=== PATIENT | female | born 1955 | race Caucasian/White ===

== ENCOUNTER 2024-11-04 11:32 | Emergency (ER) | payer MEDICARE, OTHER, SELFPAY ==
[2024-11-04 11:32] VITALS: BMI 23.5
[2024-11-04 11:33] VITALS: BP 144/109
[2024-11-04] MEDS: ZOFRAN 4 MG IV (12:58)
[2024-11-04 13:00] VITALS: BP 137/77
[2024-11-04 13:12] LABS: % Basophils 0.7 % (0-2); % Eosinophils 1.3 % (0-6); % Immature Granulocytes 0.2 % (0-0.5); % Lymphocytes 26.6 % (20.5-51.1); % Monocytes 8.3 % (1.7-9.3); % Neutrophils 62.9 % (42.2-75.2); Absolute Eosinophils 0.1 10^3/uL (0-0.7); Absolute Lymphocytes 1.2 10^3/uL (1.2-3.4); Absolute Monocytes 0.4 10^3/uL (0.1-0.6); Absolute Neutrophils 2.9 10^3/uL (1.4-6.5); Hematocrit 35.2 % (37.0-47.0); Mean Corp Hgb Conc. 34.1 g/dL (33.0-37.0); Mean Corpuscular Hgb 31.5 pg (27.0-31.0); Mean Corpuscular Volume 92.4 fL (81.0-99.0); Mean Platelet Volume 10.6 fL (7.4-10.4); Nucleated Red Blood Cells % 0 %; Platelet Count 215 10^3/uL (130-400); Red Blood Cell Count 3.81 10^6/uL (4.20-5.40); White Blood Cell Count 4.6 10^3/uL (4.8-10.8)
[2024-11-04 13:23] LABS: Urine Albumin Negative (Neg - Trace); Urine Bilirubin Negative (Negative); Urine Character Clear (Clear); Urine Color Yellow; Urine Glucose Negative (Negative); Urine Ketone Negative (Negative); Urine Leukocyte Negative (Negative); Urine Nitrite Negative (Negative); Urine Occult Blood Negative (Negative); Urine Specific Gravity 1.005 (<1.030); Urine Urobilinogen Negative (Neg - 1+)
[2024-11-04 13:25] LABS: ALT (SGPT) 18 U/L (0-35); AST (SGOT) 23 U/L (14-36); Alkaline Phosphatase 35 U/L (38-126); Blood Urea Nitrogen 15 mg/dl (7-17); Calcium 9.7 mg/dl (8.4-10.2); Carbon Dioxide 28 mmol/L (22-30); Chloride 108 mmol/L (98-107); Estimated Creatinine Clearance 65 ml/min; Glucose 91 mg/dl (70-99); Lipase 68 U/L (23-300); Potassium 4.5 mmol/L (3.5-5.1); Sodium 139 mmol/L (135-145); Total Bilirubin 0.5 mg/dl (0.2-1.3); Total Protein 6.6 g/dl (6.3-8.2); eGFR > 60.00
--- NOTE | 2024-11-04 14:01 | ED.GENMED ---
History of Present Illness
General
Chief Complaint: Abdominal Pain
Time Seen by Provider: 11/04/24 12:09
History of Present Illness
History of Present Illness:
69-year-old female without significant past medical history presenting to the emergency department for 3 days of lower abdominal discomfort. Reports pain in the right lower quadrant region of the abdomen. Notes history of right nephrectomy and
appendectomy in the past. Notes nausea without vomiting. Denies any urinary complaints. Does report history of UTIs in the past, however denies any of those present symptoms. Denies chest pain or difficulty breathing. Denies changes in stool.
Denies fever. Pain has been constant. Denies additional acute medical complaints.
Phy Exam
Physical Exam
Physical Exam:
General: Well-appearing, no clinical signs of dehydration, nontoxic and in no acute distress
HEENT: protecting airway
Neck: appears supple
CV: Normal heart rate, regular rhythm
Resp: No accessory muscle use, no increased work of breathing, lungs clear to auscultation bilaterally
Abd: Soft and non-distended, mild tenderness to the right inguinal region, suprapubic, left lower quadrant without rebound or guarding
Extremities: No deformities, no swelling
Neuro: alert, no focal neurologic deficit
: deferred
Rectal: deferred
Psych: Normal affect
Skin: Intact
Course
Orders/Labs/Results
Orders:
Orders
11/04/24 12:51
Ondansetron Injectable [Zofran] 4 mg IV NOW STA
11/04/24 12:59
Complete Blood Count/With Diff Urgent
Comprehensive Metabolic Panel Urgent
Lipase Urgent
Urinalysis Reflex To Culture Urgent
Date Specimen was Collected: 11/04/24
Time Specimen was Collected: 12:55
11/04/24 13:57
CT Abd/pelvis W Iv Cont Urgent
Comment:
Reason For Exam: generalized pain, RLQ, no appendix
Abnormal Lab Results
11/04/24
12:59
WBC 4.6 L 10^3/uL
(4.8-10.8)
RBC 3.81 L 10^6/uL
(4.20-5.40)
Hct 35.2 L %
(37.0-47.0)
MCH 31.5 H pg
(27.0-31.0)
MPV 10.6 H fL
(7.4-10.4)
Chloride 108 H mmol/L
(98-107)
Alkaline Phosphatase 35 L U/L
(38-126)
11/04/24 12:59
11/04/24 12:59
Vital Signs
Initial and Last Documented VS:
Initial Vital Signs
Temp Pulse Resp BP Pulse Ox
98.0 F 99 16 144/109 98
11/04/24 11:33 11/04/24 11:33 11/04/24 11:33 11/04/24 11:33 11/04/24 11:33
Last Documented Vital Signs
Temp Pulse Resp BP Pulse Ox
98.0 F 63 16 137/77 99
11/04/24 11:33 11/04/24 13:15 11/04/24 14:00 11/04/24 13:00 11/04/24 13:15
MDM/Problems Addressed
MDM/Problems Addressed:
69-year-old female presenting for 3 days of lower abdominal discomfort. Vital signs on arrival are significant for high blood pressure, however improved without intervention.
On exam patient is resting comfortably, no acute distress. Patient is nontoxic. Reassuring examination, mild tenderness to the right lower quadrant. Prior appendectomy and oophorectomy, without concern for ovarian pathology or acute appendicitis.
Does have some tenderness to the suprapubic region. Cystitis is a consideration. Diverticulitis is a consideration. Will screen with laboratory analysis, urinalysis, reassess
14:00 - Labs unremarkable. Urine without sign of infection. Patient reports she still feeling symptomatic. For this reason we will obtain CT imaging
*Critical Care Note
Total Time (30-74mins, 75-104mins- exclusive of procedures): Not Applicable
ED Attending Note
-
Portions of this chart may have been created with voice recognition software.� Occasional wrong word or��sound alike� substitutions may have occurred due to the inherent limitations of voice recognition software.
Discharge Plan
Departure
Referrals:
Oj Vazquez MD [Family Provider, Internal Medicine]
Interventions
Interventions:
*Risk Screen - Suicide Last Done: 11/04/24 11:33
*General Assessment Last Done: 11/04/24 12:48
*Neglect/Abuse Screening Last Done: 11/04/24 11:33
*ED- Fall Risk Assessment Last Done: 11/04/24 12:48
MY-Pgjldo-Jfmszqjlta Assessment Last Done: 11/04/24 12:48
Discharge Date and Time
Print Language: NIUEAN
[2024-11-04 14:25] VITALS: BP 142/74
[2024-11-04 15:00] VITALS: BP 114/69
[2024-11-04 16:00] VITALS: BP 129/67
== END 2024-11-04 18:08 | disposition home or self-care (01) ==
LOC: EMR 11:32
PROVIDERS: EMERGENCY PHYSICIAN Student in an Organized Health Care Education/Training Program; FAMILY PHYSICIAN Internal Medicine
DX: R10.31 Right lower quadrant pain (principal); Z90.49 Acquired absence of other specified parts of digestive tract; Z90.5 Acquired absence of kidney
CPT/HCPCS: 96374; 99284; 74177; 80053; 81003; 83690; 85025; Q9967